=== PATIENT | female | born 1940 | race Caucasian/White ===

== ENCOUNTER → 2025-10-02 00:03 | Outpatient (CLI) | payer MEDICARE, SELFPAY ==
--- NOTE | 2025-10-02 07:30 | DI.RAD_ITS ---
Exam(s) XR FOOT RT COMPLETE EXAM: XR FOOT RT COMPLETE CLINICAL HISTORY: Right foot pain,M79.671. TECHNIQUE: 2D digital imaging was performed. Three views. COMPARISON: No exams were available for comparison FINDINGS: BONES: No acute fracture is present. No bony destructive lesion is seen. JOINTS: No dislocation present. There are no significant degenerative changes. The plantar arch is maintained. SOFT TISSUE: Normal. IMPRESSION: Unremarkable radiographs of the right foot. DATA REPOSITORY: RADIATION DOSE DELIVERED:
== END ==
LOC: DI 00:03
PROVIDERS: PCP Family Medicine; Visit Provider Podiatrist
DX: M79.671 Pain in right foot (principal); M72.2 Plantar fascial fibromatosis; L60.3 Nail dystrophy; B35.1 Tinea unguium; M20.41 Other hammer toe(s) (acquired), right foot; M77.31 Calcaneal spur, right foot
CPT/HCPCS: 11755; 99203; 73630